=== PATIENT | female | born 1980 | race Caucasian/White ===

== ENCOUNTER 2016-07-08 16:15 | Emergency (ER) | payer OTHER, BC ==
[~2016-07-08] VITALS: Ht 157.5 cm; Wt 52.9 kg
[~2016-07-08 16:15] MED LIST: MULT-506 PO; SERT50TA PO
[2016-07-08 16:18] VITALS: TEMP 36.7; Ht 157.5 cm; Wt 52.9 kg
[2016-07-08] MEDS ORDERED: ZLF/50 PO (16:33)
--- NOTE | 2016-07-08 17:13 | DIAGNOSTIC IMAGING REPORT ---
CT SCAN OF THE FACIAL BONES WITHOUT IV CONTRAST CLINICAL HISTORY: Right facial trauma. COMPARISON STUDY: No priors. TECHNIQUE: High-resolution CT scan of the facial bones is performed. Images are reviewed in the axial, sagittal, and coronal planes. IV contrast was not administered for this examination. CT DOSE: 566.28 mGy.cm FINDINGS: The skeletal structures are well mineralized. There is no evidence of facial bone fracture. The bony orbits are intact and the orbital contents are within normal limits. The zygomatic arches, nasal bones, and pterygoid plates are preserved. The maxilla and mandible are intact. There are no layering blood products within the paranasal sinuses. Trace mucosal thickening is seen within the maxillary antra and ethmoid sinuses. The remaining paranasal sinuses and the mastoid air cells are clear. The visualized calvarium and upper cervical spine are maintained. Partially imaged brain parenchyma is within normal limits. There is mild right premalar soft tissue contusion. IMPRESSION: There is no evidence of facial bone fracture. Electronically signed by: Teo Rodriguez M.D. 07/08/2016 5:12 PM Dictated Date/Time: 07/08/2016 5:07 PM
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
[2016-07-08 17:38] VITALS: BP 121/86; PULSE 61; O2SAT 99
== END 2016-07-08 17:40 | disposition home or self-care (01) ==
LOC: C.EDB 16:16 → C.EDD 17:40
DX: S06.0X0A Concussion without loss of consciousness, initial encounter (principal); Y99.0 Civilian activity done for income or pay; Y92.219 Unspecified school as the place of occurrence of the external cause; Y93.89 Activity, other specified; W51.XXXA Accidental striking against or bumped into by another person, initial encounter; Z79.899 Other long term (current) drug therapy

== ENCOUNTER 2019-05-30 07:35 | Inpatient (IN) ==
[2019-05-30] MEDS ORDERED: OXYTOCIN 30 UNITS/500 ML BAG IV PRN ×2 (08:19→21:28)
[2019-05-30 08:44] LABS: Hematocrit (blood only) 34.4 % (37-47); Hemoglobin 11.7 g/dL (12.0-16.0); Mean Corpuscular Hemoglobin 31.3 pg (25-34); Mean Platelet Volume 11.1 fL (7.4-10.4); Platelet Count 144 K/uL (130-400); RDW Standard Deviation 43.6 fL (36.4-46.3); Red Blood Count 3.74 M/uL (4.2-5.4); White Blood Count 9.04 K/uL (4.8-10.8)
[2019-05-30] MEDS ORDERED: miSOPROStoL 25 MCG TAB PV ONE (08:44)
--- NOTE | 2019-05-30 08:49 | Obstetrical Progress Note ---
Date of Service May 30, 2019 Assessment & Plan Admission and Anticipated Discharge Date Admission Date: May 30, 2019 Physical Exam Physical Exam: Admit Note 38 F P1001 at 40.6 weeks admitted for IOL for post dates. GBS is negative. FHT Cat 1. Cervix is finger tip/thick/-3/vertex/firm/posterior/intact. Will place Cytotec 25 mcg vaginally to ripen cervix. Discussed plan with patient and is agreeable. Constitutional: WD/WN, vitals as above comfortable Results & Data ([facility]) Vital Signs (Past 12 Hours) Vital Signs Temp Pulse Resp BP 05/30/19 07:47 72 117/69 05/30/19 07:45 36.7 C 72 20 117/69
--- NOTE | 2019-05-30 09:03 | Obstetrical Progress Note ---
Date of Service May 30, 2019 Assessment & Plan Admission and Anticipated Discharge Date Admission Date: May 30, 2019 Physical Exam Physical Exam: Cytotec 25 mcg placed vaginally. FHT Cat 1 Results & Data ([facility]) Vital Signs (Past 12 Hours) Vital Signs Temp Pulse Resp BP 05/30/19 07:47 72 117/69 05/30/19 07:45 36.7 C 72 20 117/69
[2019-05-30] MEDS ORDERED: miSOPROStoL 25 MCG TAB PV SCH ×2 (17:00→20:00)
--- NOTE | 2019-05-30 17:05 | Obstetrical Progress Note ---
Date of Service May 30, 2019 Assessment & Plan Admission and Anticipated Discharge Date Admission Date: May 30, 2019 Physical Exam Genitourinary: OB Exam Abdomen: + heart tones, + vertex and + irregular contractions Manual OB Exam: + cervical dilation 1 cm and 2 cm, + cervical effacement 50% and + station high OB Exam Monitor Tracing: + external FHT monitor used, + category I and + normal FHT variability Cervidil 25 mcg placed vaginally Results & Data ([facility]) Vital Signs (Past 12 Hours) Vital Signs Temp Pulse Resp BP 05/30/19 15:09 36.7 C 60 20 108/68 05/30/19 11:04 36.5 C 59 L 20 108/66 05/30/19 07:47 72 117/69 05/30/19 07:45 36.7 C 72 20 117/69
[2019-05-30] MEDS: LACTATED RINGER'S 1,000 ML IV PRN ×2 (20:50→21:54)
--- NOTE | 2019-05-30 21:23 | Obstetrical Progress Note ---
Date of Service May 30, 2019 Assessment & Plan Admission and Anticipated Discharge Date Admission Date: May 30, 2019 Physical Exam Genitourinary: Manual OB Exam: + cervical dilation 3 cm, + cervical effacement 70%, + station and + amniotic fluid meconium OB Exam Monitor Tracing: + external FHT monitor used, + external uterine monitor used, + category I and + normal FHT variability Results & Data ([facility]) Vital Signs (Past 12 Hours) Vital Signs Temp Pulse Resp BP 05/30/19 20:32 36.6 C 05/30/19 19:08 63 116/72 05/30/19 19:07 36.7 C 18 05/30/19 15:09 36.7 C 60 20 108/68 05/30/19 11:04 36.5 C 59 L 20 108/66
[2019-05-30] MEDS ORDERED: fentaNYL citrate 100 MCG/2 ML VIAL ONE (22:39)
[2019-05-30] MEDS ORDERED: fentaNYL 2MCG/ML ROPIV 1.25MG/ML 100 ML BAG EPI ONE (22:39)
[2019-05-30] MEDS ORDERED: ePHEDrine sulfate 50 MG/ML AMP ONE (22:39)
[2019-05-30] MEDS ORDERED: BUPIVACAINE 0.25% 30 ML VIAL ONE (22:39)
[2019-05-30] MEDS ORDERED: NALBUPHINE HCL INJ 10 MG/ML AMP IV PRN (23:08)
[2019-05-30] MEDS ORDERED: DiphenhydrAMINE HCL 50 MG/ML VIAL IV PRN (23:08)
[2019-05-30] MEDS ORDERED: NALOXONE HCL 1 MG in SODIUM CHLORIDE 0.9% 1000ML 1,000 ML IV PRN (23:08)
[2019-05-30] MEDS ORDERED: ePHEDrine sulfate 50 MG/ML AMP IV PRN (23:08)
[2019-05-30] MEDS ORDERED: ONDANSETRON INJ 2 MG/ML 2 ML VIAL IV PRN (23:08)
[2019-05-30] MEDS ORDERED: NALOXONE HCL 0.4 MG/1 ML VIAL/CARP IV PRN (23:08)
[2019-05-30] MEDS ORDERED: fentaNYL 2MCG/ML ROPIV 1.25MG/ML 100 ML BAG EPI PRN (23:08)
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
[2019-05-31] MEDS: LACTATED RINGER'S 1,000 ML IV PRN (05:44)
--- NOTE | 2019-05-31 07:16 | Delivery Summary ---
Vaginal Delivery Summary Date of Service May 31, 2019 Supervising Physician Co-Signing Physician Notes Delivery Note live male SATURNINO and hand presentation over intact perineum with Apgars 7/9 weight pending. Cord blood obtained followed by spontaneous delivery of intact placenta. No tears. Final sponge and instrument count are correct. Mom and baby stable.
[2019-05-31] MEDS ORDERED: SUPERCREAM 0.870% 15 GM JAR EXT PRN (07:26)
[2019-05-31] MEDS ORDERED: BENZOCAINE 20% AER SPR 82.5 GM CAN EXT PRN (07:26)
[2019-05-31] MEDS ORDERED: ACETAMINOPHEN 325 MG TAB PO PRN (07:26)
[2019-05-31] MEDS ORDERED: OXYTOCIN 30 UNITS/500 ML BAG IV PRN (07:26)
[2019-05-31] MEDS ORDERED: bisacodyL 10 MG SUPP PR PRN (07:26)
[2019-05-31] MEDS ORDERED: HYDROCORTISONE ACETATE 25 MG SUPP PR PRN (07:26)
[2019-05-31] MEDS ORDERED: DIPHTHERIA/TETANUS/PERTUSSIS 0.5 ML SYR/VIAL IM ONE (07:26)
[2019-05-31] MEDS ORDERED: FERROUS SULFATE 325 MG TAB PO SCH (08:00)
[2019-05-31] MEDS ORDERED: PRENATAL VITAMIN 1 TAB PO SCH (08:00)
--- NOTE | 2019-05-31 08:36 | Anesthesia Procedure Note ---
Date of Service May 31, 2019 Anesthesia Post Epidural Note Vital Signs Vital Signs: Temp Pulse Resp BP Pulse Ox 36.6 C 74 18 93/53 L 100 05/31/19 05:19 05/31/19 08:21 05/31/19 06:51 05/31/19 08:21 05/31/19 07:08 Notes Mental Status: alert / awake / arousable and participated in evaluation Nausea / Vomiting: adequately controlled Pain: adequately controlled Airway Patency, RR, SpO2: stable & adequate BP & HR: stable & adequate Hydration State: stable & adequate Neuraxial Anesthesia: was administered and sensory block is resolving Anesthetic Complications: no major complications apparent Epidural: Removed without complications and With tip intact
[2019-05-31] MEDS: IBUPROFEN 600 MG TAB PO PRN ×2 (14:58→23:53)
[2019-05-31] MEDS: DOCUSATE SODIUM 100 MG CAP PO SCH ×2 (17:17→21:19)
[2019-05-31] MEDS: FERROUS SULFATE 325 MG TAB PO SCH (17:17)
[2019-05-31] MEDS: PRENATAL VITAMIN 1 TAB PO SCH (17:17)
[2019-06-01 06:01] LABS: Hematocrit (blood only) 28.5 % (37-47); Hemoglobin 9.8 g/dL (12.0-16.0); Mean Corpuscular Hemoglobin 31.1 pg (25-34); Mean Corpuscular Hgb Conc 34.4 g/dL (32-36); Mean Corpuscular Volume 90.5 fL (80-100); Mean Platelet Volume 11.1 fL (7.4-10.4); Platelet Count 140 K/uL (130-400); RDW Coefficient of Variation 13.3 % (11.5-14.5); RDW Standard Deviation 43.9 fL (36.4-46.3); Red Blood Count 3.15 M/uL (4.2-5.4); White Blood Count 14.29 K/uL (4.8-10.8)
[2019-06-01] MEDS: DOCUSATE SODIUM 100 MG CAP PO SCH (08:09)
[2019-06-01] MEDS: PRENATAL VITAMIN 1 TAB PO SCH (08:09)
[2019-06-01] MEDS: FERROUS SULFATE 325 MG TAB PO SCH (08:09)
--- NOTE | 2019-06-01 09:56 | Obstetrical Progress Note ---
Date of Service June 01, 2019 Assessment & Plan Admission and Anticipated Discharge Date Admission Date: May 30, 2019 Subjective doing well out of bed tolerating diet passing gas Physical Exam Constitutional: WD/WN, vitals as above Genitourinary: abdomen soft non-tender fundus firm no edema neg Parvin's for discharge today Results & Data ([facility]) Vital Signs (Past 12 Hours) Vital Signs Temp Pulse Resp BP Pulse Ox 06/01/19 08:30 36.6 C 65 16 103/68 99 06/01/19 03:00 36.6 C 59 L 16 99/63 L 05/31/19 23:50 36.7 C 70 18 100/64 Laboratory Results Laboratory Results - last 72 hr 05/30/19 06/01/19 08:29 05:31 WBC 9.04 14.29 H RBC 3.74 L 3.15 L Hgb 11.7 L 9.8 L Hct 34.4 L 28.5 L MCV 92.0 90.5 MCH 31.3 31.1 MCHC 34.0 34.4 RDW Std Deviation 43.6 43.9 RDW Coeff of Sharif 13.0 13.3 Plt Count 144 140 MPV 11.1 H 11.1 H
[2019-06-01] MEDS ORDERED: bisacodyL 5 MG TABEC PO SCH (20:00)
== END 2019-06-01 21:47 | disposition home or self-care (01) | DRG 807 ==
LOC: 4S1 07:35 → 4S2 05-31 10:43